=== PATIENT | female | born 1990 | race Caucasian/White ===

== ENCOUNTER 2019-10-31 22:49 | Emergency (ER) | payer MEDICAID, SELFPAY ==
[2019-10-31 23:18] LABS: #Lymphocytes 2.1 thou/uL (1.20-3.40); #Neutrophils 4.6 thou/uL (1.40-6.50); %Basophils 0.7 % (0.0-1.0); %Eosinophils 4.4 % (0.0-10.0); %Lymphocytes 27.5 % (21.0-51.0); %Monocytes 7.8 % (0.0-10.0); %Neutrophils 59.6 % (42.0-75.0); Manual Diff?? NO; Mean Corpuscular HGB CONC 31.1 g/dL (32.0-36.0); Mean Corpuscular Hemoglobin 29.3 pg (27.0-31.0); Mean Corpuscular Volume 94.6 fL (78.0-98.0); Mean Platelet Volume 9.4 fL (7.4-10.4); Platelet Count 216 thou/uL (130-400); RBC Distribution Width 12.3 % (11.5-14.5); Red Blood Cell (RBC) Count 3.73 mill/uL (4.20-5.40); White Blood Cell (WBC) Count 7.7 thou/uL (4.8-10.8)
[2019-10-31 23:19] LABS: #Basophils 0.1 thou/uL (0.0-0.2); #Eosinphils 0.3 thou/uL (0.0-0.7); #Monocytes 0.6 thou/uL (0.11-0.59)
[2019-10-31 23:37] LABS: ALT (SGPT) 43 U/L (8-55); AST (SGOT) 34 U/L (5-34); Albumin 3.5 g/dL (3.5-5.0); Alkaline Phosphatase 82 U/L (40-110); Anion Gap 11 mmol/L (10-20); BUN (Urea Nitrogen) 12 mg/dL (7.0-18.7); Bilirubin, Total 0.1 mg/dL (0.2-1.2); CK (CPK) 80 U/L (29-168); Calc. Creatinine Clearance 0 mL/min (70-130); Carbon Dioxide 24 mmol/L (22-29); Chloride 107 mmol/L (98-107); Estimated GFR-MDRD 81; Globulin 2.9 g/dL (2.4-3.5); Glucose 83 mg/dL (70-105); Potassium 3.9 mmol/L (3.5-5.1); Protein, Total 6.4 g/dL (6.0-8.3); Sodium 138 mmol/L (136-145)
== END 2019-11-01 01:36 | disposition home or self-care (01) ==
LOC: NAV ERS 22:49
DX: F41.9 Anxiety disorder, unspecified (principal); G43.909 Migraine, unspecified, not intractable, without status migrainosus; F17.210 Nicotine dependence, cigarettes, uncomplicated; M24.531 Contracture, right wrist; M24.532 Contracture, left wrist
CPT/HCPCS: 80053; 82550; 85025; 93005